=== PATIENT | female | born 1940 | race Caucasian/White ===

== ENCOUNTER → 2016-11-04 | Outpatient (CLI) | payer MEDICARE ==
[~2016-11-04] MED LIST: ALBUTEROL0.83 MG/ML IH; BROVANA15 MCG/2 M IH; PULMICORT0.2 MG/AC1 IH
== END ==
LOC: COL.PUL 07:55
DX: J44.9 Chronic obstructive pulmonary disease, unspecified (principal)

== ENCOUNTER → 2016-11-14 | Outpatient (CLI) | payer MEDICARE | LOC: COL.PUL 14:29 | DX: J44.9 Chronic obstructive pulmonary disease, unspecified (principal) ==